=== PATIENT | female | born 1995 | race Caucasian/White ===

== ENCOUNTER 2021-10-23 23:33 | Emergency (ER) | payer SELFPAY ==
--- NOTE | 2021-10-23 23:47 | Emergency Department Report ---
ED Psych HPI - General Stated Complaint: SI/HI Time Seen by Provider: 10/23/21 23:36 Source: patient - History of Present Illness Initial Comments: Patient is 26 years old female with history of schizophrenia. Patient brought to the emergency room via [place] for mental health evaluation. Patient was found to be talking to herself and doing bizarre things. Patient also reported that she is suicidal. She stated that she is hearing voices asking her to kill herself. Patient stated that she does not burdick ve a specific plan yet. She denies any homicidal ideation. MD Complaint: suicidal ideation, feels depressed, altered mental status Associated Psychiatric Symptoms: suicidal ideation, racing thoughts, auditory hallucinations, visual hallucinations History of same: Yes Quality: constant Associated Symptoms: denies other symptoms If Self Harm: admits thoughts of - Related Data Home Medications Medication Instructions Recorded Confirmed Last Taken Unobtainable 10/24/21 10/24/21 Unknown Allergies Allergy/AdvReac Type Severity Reaction Status Date / Time aspirin Allergy Unknown Verified 10/24/21 00:06 peanut Allergy Unknown Verified 10/24/21 00:06 ED Review of Systems ROS: Stated complaint: SI/HI Other details as noted in HPI Comment: All other systems reviewed and negative Constitutional: denies: chills, fever Respiratory: denies: cough, shortness of breath, SOB with exertion Cardiovascular: denies: chest pain, palpitations Gastrointestinal: denies: abdominal pain, nausea, vomiting, diarrhea, co nstipation, hematemesis, melena, hematochezia Musculoskeletal: denies: back pain Neurological: denies: headache ED Past Medical Hx - Medications Home Medications: Home Medications Medication Instructions Recorded Confirmed Last Taken Type Unobtainable 10/24/21 10/24/21 Unknown History ED Physical Exam - General General appearance: alert, in no apparent distress, anxious - Head Head exam: Present: atraumatic, normocephalic - Eye Eye exam: Present: normal appearance - ENT ENT exam: Present: normal exam, normal orophraynx, mucous membranes moist - Neck Neck exam: Present: normal inspection, full ROM. Absent: tenderness, meningismus - Respiratory Respiratory exam: Present: normal lung sounds bilaterally - Cardiovascular Cardiovascular Exam: Present: regular rate, normal rhythm, normal heart sounds - GI/Abdominal GI/Abdominal exam: Present: soft, normal bowel sounds. Absent: distended, tenderness, guarding, rebound, rigid, organomegaly, mass, bruit, pulsatile mass, hernia - Extremities Exam Extremities exam: Present: normal inspection, full ROM, normal capillary refill. Absent: tenderness - Back Exam Back exam: Present: normal inspection, full ROM. Absent: CVA tenderness (R), CVA tenderness (L) - Neurological Exam Neurological exam: Present: alert, oriented X3, CN II-XII intact - Psychiatric Psychiatric exam: Present: anxious, suicidal ideation. Absent: homicidal ideation - Skin Skin exam: Present: warm, intact, normal color ED Course Vital Signs 10/23/21 10/24/21 10/24/21 23:33 00:05 11:03 Temperature 98.3 F 97.2 F L Pulse Rate 87 94 H Respiratory 17 18 Rate Blood Pressure 123/83 111/65 [Right] O2 Sat by Pulse 100 100 97 Oximetry 10/24/21 10/25/21 22:00 10:00 Temperature 98.6 F 98.6 F Pulse Rate 86 85 Respiratory 18 18 Rate Blood Pressure 100/59 120/81 [Right] O2 Sat by Pulse 100 99 Oximetry ED Medical Decision Making - Lab Data Result diagrams: 10/23/21 23:45 10/23/21 23:45 Critical care attestation.: If time is entered above; I have spent that time in minutes in the direct care of this critically ill patient, excluding procedure time. ED Disposition Clinical Impression: Suicidal ideations Disposition: [address] [place] [address] Is pt being admited?: No Condition: Stable Referrals: PRIMARY CARE, [Primary Care Provider] - 3-5 Days
[2021-10-23 23:59] LABS: Basophils # (Auto) 0.1 K/mm3 (0.0-0.1); Basophils % (Auto) 0.7 % (0.0-1.8); Eosinophils # (Auto) 0.1 K/mm3 (0.0-0.4); Eosinophils % (Auto) 1.3 % (0.0-4.3); Hematocrit 42.2 % (30.3-42.9); Hemoglobin 13.2 gm/dl (10.1-14.3); Lymphocytes # (Auto) 2.9 K/mm3 (1.2-5.4); Lymphocytes % (Auto) 34.1 % (13.4-35.0); Mean Corpuscular HGB Conc 31 % (30-34); Mean Corpuscular Volume 81 fl (79-97); Monocytes # (Auto) 0.6 K/mm3 (0.0-0.8); Monocytes % (Auto) 7.1 % (0.0-7.3); Platelet Count 324 K/mm3 (140-440); Red Blood Count 5.19 M/mm3 (3.65-5.03); Red Cell Distribution Width 16.3 % (13.2-15.2)
[2021-10-24 00:17] LABS: Blood Urea Nitrogen 8 mg/dL (7-17); Hemolysis Index 0
[2021-10-24 00:18] LABS: BUN/Creatinine Ratio 11
[2021-10-24] MEDS ORDERED: ZIPRASIDONE MESYLATE 20 MG VIAL IM ONE ×2 (00:27→00:28)
--- NOTE | 2021-10-24 10:51 | Consultation ---
History of Present Illness - Reason for Consult Consult date: 10/24/21 Reason for consult: pshychosis, SI - History of Present Psychiatric Illness The patient was seen today. She presented to the ER for psychosis and bizarre behavior. During my evaluation of the patient, she is delusional and at times nonsensical. She tells me she came to the hospital to "have my pupils checked." She says "they have been rotating." The patient says she is hearing loud noises everywhere. She endorses feeling suicidal. She says "yes, I don't want to live because I want my schizophrenia gone." She becomes tearful. She says she has a plan to fall and get ran over or jump off of a building. The patient says the "schizophrenia is making me infertility." She is rubbing her chin while she's talking about it. REVIEW OF SYSTEMS Denies cough, runny nose or fever MENTAL STATUS EXAMINATION General Appearance and Behavior: Age appropriate, good hygiene, wearing appropriate clothes. calm, cooperative Cooperation: Cooperative Psychomotor Behavior: Psychomotor normal Mood: Depressed Affect and affective range: tearful Thought Process: circumstantial, illogical Thought Content: hallucinations, SI Speech: Normal tone and pace Suicidal Ideation: Yes Homicidal Ideation: Denies Hallucinations: Auditory Delusions: Yes Impulse Control: Limited Insight and Judgment: Limited insight and fair judgment Memory: Limited Attention: distracted Orientation: a/o x 3 Assessment (1) Schizophrenia (2) Cocaine Dependence Treatment Plan 1013 Risperidone 0.5mg po BID Trazodone 50mg po qhs Geodon 20mg IM q4h prn it[place] Medical: Per primary Disposition: Recommend acute psychiatric inpatient treatment Will follow. Thanks. Case staffed with Dr. Andrews Medications and Allergies Allergies Allergy/AdvReac Type Severity Reaction Status Date / Time aspirin Allergy Unknown Verified 10/24/21 00:06 peanut Allergy Unknown Verified 10/24/21 00:06 Home Medications Medication Instructions Recorded Confirmed Last Taken Type Unobtainable 10/24/21 10/24/21 Unknown History Mental Status Exam - Vital signs Last Vital Signs Temp 98.3 F 10/23/21 23:33 Pulse 87 10/23/21 23:33 Resp 17 10/23/21 23:33 BP 123/83 10/23/21 23:33 Pulse Ox 100 10/24/21 00:05 Results Result Diagrams: 10/23/21 23:45 10/23/21 23:45 Abnormal lab results 10/23/21 10/23/21 10/23/21 Range/Units 23:45 23:45 23:45 RBC 5.19 H (3.65-5.03) M/mm3 MCH 25 L (28-32) pg RDW 16.3 H (13.2-15.2) % Salicylates < 0.3 L (2.8-20.0) mg/dL Acetaminophen 5.0 L (10.0-30.0) ug/mL All other labs normal.
[2021-10-24] MEDS ORDERED: ZIPRASIDONE MESYLATE 20 MG VIAL IM PRN (10:58)
--- NOTE | 2021-10-24 12:46 | Event Note ---
Date: 10/24/21 The patient was evaluated in the emergency department for symptoms described in the history of present illness. He/she was evaluated in the context of the global COVID-19 pandemic, which necessitated consideration that the patient might be at risk for infection with the virus that causes COVID-19. Institutional protocols and algorithms that pertain to the evaluation of patients at risk for COVID-19 are in a state of rapid change based on information released by regulatory bodies including the CDC and federal and state organizations. These policies and algorithms were followed during the patient's care in the emergency department. Please note that these policies, procedures and recommendations changed on a rapid basis. Laboratory studies, vital signs, nursing documentation, ER documentation, and psychiatric documentation are reviewed and appreciated. Nursing team reports no acute events this morning or concerns. The patient is awake and in no acute distress Nursing team endorses that the patient ate breakfast and went to the bathroom without difficulty this morning Psychiatric team have recommended a 1013. I have written this and fill that out. The patient was deemed medically suitable for psychiatric disposition and placement during her initial ER evaluation. The patient continues to remain medically suitable for psychiatric placement and disposition. sHe is currently pending psychiatric placement. Vital Signs 10/23/21 10/24/21 10/24/21 23:33 00:05 11:03 Temperature 98.3 F 97.2 F L Pulse Rate 87 94 H Respiratory 17 18 Rate Blood Pressure 123/83 111/65 [Right] O2 Sat by Pulse 100 100 97 Oximetry Lab Results 10/23/21 10/23/21 10/23/21 Range/Units 23:45 23:45 23:45 WBC 8.4 (4.5-11.0) K/mm3 RBC 5.19 H (3.65-5.03) M/mm3 Hgb 13.2 (10.1-14.3) gm/dl Hct 42.2 (30.3-42.9) % MCV 81 (79-97) fl MCH 25 L (28-32) pg MCHC 31 (30-34) % RDW 16.3 H (13.2-15.2) % Plt Count 324 (140-440) K/mm3 Lymph % (Auto) 34.1 (13.4-35.0) % Holmes % (Auto) 7.1 (0.0-7.3) % Eos % (Auto) 1.3 (0.0-4.3) % Baso % (Auto) 0.7 (0.0-1.8) % Lymph # (Auto) 2.9 (1.2-5.4) K/mm3 Holmes # (Auto) 0.6 (0.0-0.8) K/mm3 Eos # (Auto) 0.1 (0.0-0.4) K/mm3 Baso # (Auto) 0.1 (0.0-0.1) K/mm3 Seg Neutrophils % 56.8 (40.0-70.0) % Seg Neutrophils # 4.8 (1.8-7.7) K/mm3 Sodium 140 (137-145) mmol/L Potassium 4.1 (3.6-5.0) mmol/L Chloride 103.4 (98-107) mmol/L Carbon Dioxide 26 (22-30) mmol/L Anion Gap 15 mmol/L BUN 8 (7-17) mg/dL Creatinine 0.7 (0.6-1.2) mg/dL Estimated GFR > 60 ml/min BUN/Creatinine Ratio 11 % Glucose 95 (65-100) mg/dL Calcium 9.0 (8.4-10.2) mg/dL HCG, Qual (Negative) Salicylates < 0.3 L (2.8-20.0) mg/dL Acetaminophen (10.0-30.0) ug/mL Plasma/Serum Alcohol (0-0.07) % SARS-CoV-2 (PCR) (Negative) 10/23/21 10/23/21 10/23/21 Range/Units 23:45 23:45 23:45 WBC (4.5-11.0) K/mm3 RBC (3.65-5.03) M/mm3 Hgb (10.1-14.3) gm/dl Hct (30.3-42.9) % MCV (79-97) fl MCH (28-32) pg MCHC (30-34) % RDW (13.2-15.2) % Plt Count (140-440) K/mm3 Lymph % (Auto) (13.4-35.0) % Holmes % (Auto) (0.0-7.3) % Eos % (Auto) (0.0-4.3) % Baso % (Auto) (0.0-1.8) % Lymph # (Auto) (1.2-5.4) K/mm3 Holmes # (Auto) (0.0-0.8) K/mm3 Eos # (Auto) (0.0-0.4) K/mm3 Baso # (Auto) (0.0-0.1) K/mm3 Seg Neutrophils % (40.0-70.0) % Seg Neutrophils # (1.8-7.7) K/mm3 Sodium (137-145) mmol/L Potassium (3.6-5.0) mmol/L Chloride (98-107) mmol/L Carbon Dioxide (22-30) mmol/L Anion Gap mmol/L BUN (7-17) mg/dL Creatinine (0.6-1.2) mg/dL Estimated GFR ml/min BUN/Creatinine Ratio % Glucose (65-100) mg/dL Calcium (8.4-10.2) mg/dL HCG, Qual Negative (Negative) Salicylates (2.8-20.0) mg/dL Acetaminophen 5.0 L (10.0-30.0) ug/mL Plasma/Serum Alcohol < 0.01 (0-0.07) % SARS-CoV-2 (PCR) (Negative) 10/24/21 Range/Units 10:30 WBC (4.5-11.0) K/mm3 RBC (3.65-5.03) M/mm3 Hgb (10.1-14.3) gm/dl Hct (30.3-42.9) % MCV (79-97) fl MCH (28-32) pg MCHC (30-34) % RDW (13.2-15.2) % Plt Count (140-440) K/mm3 Lymph % (Auto) (13.4-35.0) % Holmes % (Auto) (0.0-7.3) % Eos % (Auto) (0.0-4.3) % Baso % (Auto) (0.0-1.8) % Lymph # (Auto) (1.2-5.4) K/mm3 Holmes # (Auto) (0.0-0.8) K/mm3 Eos # (Auto) (0.0-0.4) K/mm3 Baso # (Auto) (0.0-0.1) K/mm3 Seg Neutrophils % (40.0-70.0) % Seg Neutrophils # (1.8-7.7) K/mm3 Sodium (137-145) mmol/L Potassium (3.6-5.0) mmol/L Chloride (98-107) mmol/L Carbon Dioxide (22-30) mmol/L Anion Gap mmol/L BUN (7-17) mg/dL Creatinine (0.6-1.2) mg/dL Estimated GFR ml/min BUN/Creatinine Ratio % Glucose (65-100) mg/dL Calcium (8.4-10.2) mg/dL HCG, Qual (Negative) Salicylates (2.8-20.0) mg/dL Acetaminophen (10.0-30.0) ug/mL Plasma/Serum Alcohol (0-0.07) % SARS-CoV-2 (PCR) Negative (Negative)
[2021-10-24] MEDS: risperiDONE 0.25 MG TAB PO SCH ×2 (12:58→21:54)
[2021-10-24 13:33] LABS: Bilirubin,Urine NEG (Negative); Blood,Urine NEG (Negative); Color,Urine Yellow (Yellow); Protein,Urine <15 mg/dL mg/dL (Negative); RBC,Urine < 1.0 /HPF (0.0-6.0); WBC,Urine < 1.0 /HPF (0.0-6.0)
[2021-10-24 13:41] LABS: Amphetamine Screen,Urine Negative; Benzodiazepines Screen,Urine Negative; Methadone Screen,Urine Negative; Opiate Screen,Urine Negative
[2021-10-24 14:00] LABS: Cannabinoid Screen,Urine Positive; Cocaine Screen,Urine Positive
[2021-10-24] MEDS ORDERED: traZODone 50 MG TAB PO SCH (22:00)
[2021-10-25 10:47] VITALS: BP 120/81
== END 2021-10-25 10:47 ==
LOC: ED 23:33
DX: R45.851 Suicidal ideations (principal); Z91.010 Allergy to peanuts; Z91.09 Other allergy status, other than to drugs and biological substances; Z20.822 Contact with and (suspected) exposure to COVID-19
CPT/HCPCS: 36415; 80048; 80307; 81001; 84703; 85025; 96372; 99284; J3486; U0003; 80320; G0480